=== PATIENT | female | born 2000 | race Caucasian/White ===

== ENCOUNTER 2023-08-31 06:20 | Observation (INO) | payer OTHER ==
[2023-08-31] VITALS (13 sets, daily range): BP systolic 93–134; BP diastolic 59–85; PULSE 74–90; TEMP 97.4–98.3
[~2023-08-31] VITALS: Ht 154.9 cm; Wt 115.0 kg
[2023-08-31] MEDS ORDERED: Ondansetron 4 MG/2 ML VIAL IV ONE (07:00)
[2023-08-31] MEDS ORDERED: LR 1,000 ML IV ONE (07:00)
[2023-08-31 07:19] LABS: COLLECTION METHOD CLEAN CATCH
[2023-08-31 07:26] LABS: BASO # 0.1 K/mm3 (0.0-0.2); BASO % 0.2 % (0.0-2.0); EOS % 0.1 % (0.0-4.0); GRAN # 17.2 K/mm3 (1.4-6.5); HEMATOCRIT 38.9 % (37.0-47.0); LYMPH # 2.7 K/mm3 (1.2-3.4); LYMPH % 12.5 % (20.0-51.0); MEAN CELL VOLUME 85 fl (80.0-100.0); MEAN CORPUSCULAR HEMOGLOBIN 29 pg (27-31); MEAN CORPUSCULAR HGB CONC 33 g/dl (33.0-37.0); MEAN PLATELET VOLUME 9.3 fl (7.4-10.4); MONO # 1.4 K/mm3 (0.1-0.6); MONO % 6.5 % (1.7-9.3); PLATELET COUNT 400 K/mm3 (130-400); RED BLOOD COUNT 4.56 M/mm3 (4.10-5.30); REDCELL DISTRIBUTION WIDTH-CV 12.9 % (11.5-14.5)
[2023-08-31 07:27] LABS: URINE APPEARANCE Hazy (CLEAR/HAZY); URINE BLOOD 3+ (NEGATIVE); URINE COLOR Yellow (YELLOW); URINE GLUCOSE Negative (NEGATIVE); URINE KETONE Negative (NEGATIVE); URINE NITRATE Negative (NEGATIVE); URINE PROTEIN(semi-quant) 1+ (NEGATIVE)
[2023-08-31 07:35] LABS: MUCOUS Present (NOT PRESENT); URINE BACTERIA Rare /hpf (NONE SEEN); URINE RBC 20-50 /hpf (0-2)
[2023-08-31] MEDS ORDERED: Iohexol 300 - 100 ML VIAL IV ONE (07:35)
[2023-08-31] MEDS ORDERED: NS 100 ML IV SCH (07:36)
[2023-08-31 07:45] LABS: ALBUMIN 3.8 gm/dL (3.5-5.0); BILIRUBIN,TOTAL 0.6 mg/dL (0.2-1.2); C-REACTIVE PROTEIN 22.88 mg/dL (0.00-0.50); CALCIUM 9.2 mg/dL (8.4-10.2); CREATININE, serum 0.79 mg/dL (0.57-1.11); POTASSIUM 3.1 mmol/L (3.5-4.5)
[2023-08-31] MEDS ORDERED: LR 1,000 ML IV SCH (09:00)
[2023-08-31] MEDS ORDERED: Morphine 4 MG/ML VIAL IV PRN (09:00)
[2023-08-31] MEDS ORDERED: Ondansetron 4 MG/2 ML VIAL IV PRN ×3 (09:00→13:30)
[2023-08-31] MEDS ORDERED: Ondansetron 4 MG/2 ML VIAL ONE (11:42)
[2023-08-31] MEDS ORDERED: Lidocaine PF 2% (20 MG/ML) 5 ML VIAL ONE (11:42)
[2023-08-31] MEDS ORDERED: Rocuronium 50 MG/5 ML Multi-Dose VIAL ONE (11:43)
[2023-08-31] MEDS ORDERED: fentaNYL 50 MCG/ML 5 ML VIAL ONE (11:43)
[2023-08-31] MEDS ORDERED: Topical Skin Adhesive 1 EACH (1 ML) TOP ONE (12:50)
[2023-08-31] MEDS ORDERED: HYDROmorphone 2 MG/1 ML VIAL IV PRN (13:00)
[2023-08-31] MEDS ORDERED: fentaNYL 50 MCG/ML 2 ML VIAL IV PRN (13:00)
[2023-08-31] MEDS ORDERED: oxyCODONE 5 MG TAB PO PRN (13:30)
[2023-08-31] MEDS ORDERED: Naloxone 0.4 MG/ML VIAL IV PRN (13:30)
--- NOTE | 2023-08-31 14:15 | NUR ---
pt admitted to room from pacu, at bedside. pt a&ox3 resting in bed. pt denies pain and nausea. x3 lap sites are cdi. vss. scds to ble. INT to left ac. pt denies needs at this time. oriented pt to room. call light in reach.
[2023-08-31] MEDS ORDERED: Acetaminophen 500 MG TAB PO SCH (14:21)
--- NOTE | 2023-08-31 20:00 | NUR ---
UPON SHIFT ASSESSMENT, WILMER WAS UP IN BED PUMPING BREAST MILK. SHE IS AXO X 4 AND PLEASANT. LAP APPY SITES ARE GLUE AND TO AIR, EDGES WELL APPROXIMATED WITH NO DRAINAGE OR NO REDNESS NOTED. WILMER SAYS SHE IS ABLE TO URINATE AND PASS GAS AND REPORTS NO NAUSES. ABDOMEN IS SOFT AND PALPABLE. VS ARE WNL.
[2023-09-01] VITALS (7 sets, daily range): BP systolic 106–134; BP diastolic 62–66; PULSE 71–93; TEMP 98.2–98.4
--- NOTE | 2023-09-01 07:00 | NUR ---
THROUGH OUT THE NIGHT, WILMER HAS REMAINED STABLE AND A FEBRILE. PAIN WAS MANAGED MOSTLY WITH TYLENOL WITH ONE DOSE RAMONITA GIVEN @04:30. SURGICAL SITE IS CDI. SHE IS AMBULATING AROUND ROOM AND REMAINS PLESANT. CALL LIGHT WITHIN REACH.
--- NOTE | 2023-09-01 08:20 | NUR ---
Assessment completed. Pt reports abominal pain, rating pain 5/10. Scheduled Tylenol administered.
[2023-09-01] MEDS ORDERED: ROXICODONE 55 MG/TAB PO (13:31)
[2023-09-01] MEDS ORDERED: TYLENOL 500MG500 MG PO (13:31)
--- NOTE | 2023-09-01 14:35 | NUR ---
Discharge instructions reviewed with patient- verbalizes understanding. INT to LAC d/'d with cath tip intact. Pt escorted to private vehicle via w/c and discharged home with spouse.
== END 2023-09-01 14:35 | disposition home or self-care (01) ==
LOC: COL.ER 06:20 → MEDICAL 07:53 → INPTSU 07:53 → COL.ER 07:53 → INPTSU 07:53 → COL.ER 12:42 → SDCO 12:42 → MEDICAL 14:15 → SDCO 14:15 → MEDICAL 09-01 14:35
PROVIDERS: Family Medicine; ADMIT Surgery
DX: K35.891 Other acute appendicitis without perforation, with gangrene (principal); K21.9 Gastro-esophageal reflux disease without esophagitis
CPT/HCPCS: OP; G0378; J2405; J2543; J2704; J3010; J7120; Q9967

== ENCOUNTER 2024-06-11 09:38 | Outpatient (CLI) | payer MEDICAID ==
[~2024-06-11] VITALS: Ht 165.1 cm; Wt 124.5 kg
[~2024-06-11 09:38] MED LIST: ROXICODONE 55 MG/TAB PO; TYLENOL 500MG500 MG PO
[2024-06-11] MEDS ORDERED: ZOLOFT 50MG50 MG PO (10:12)
[2024-06-11] MEDS ORDERED: ATARAX50 MG PO (10:12)
[2024-06-11] MEDS ORDERED: ASPIRIN 81M81 MG/TA2 PO (10:13)
[2024-06-11] MEDS ORDERED: PRENATAL TABLET PO (10:13)
[2024-06-11 10:25] LABS: HEMOGLOBIN 11.5 g/dl (12.5-16.0); MEAN CELL VOLUME 86 fl (80.0-100.0); MEAN CORPUSCULAR HEMOGLOBIN 29 pg (27-31); MEAN CORPUSCULAR HGB CONC 34 g/dl (33.0-37.0); MEAN PLATELET VOLUME 9.4 fl (7.4-10.4); PLATELET COUNT 349 K/mm3 (130-400); RED BLOOD COUNT 3.93 M/mm3 (4.10-5.30); REDCELL DISTRIBUTION WIDTH-CV 12.6 % (11.5-14.5)
[2024-06-11 10:30] VITALS: BP 100/61; PULSE 98; TEMP 97.9
--- NOTE | 2024-06-11 10:30 | NUR ---
Pt presents ambulatory to unit from ER at 0950, changes into gown, EFM explained and placed, VS taken. Pt reports feeling dizzy and lightheaded with racing heart. Had a similar episode last night. Pt reports this is second , she had HTN and not feeling well with first and is concerned it is happening again. Pt states she was on labetalol with first but has not taken it since she gave , but is following with Cardiology. Pt denies other complications, but does report that she was seeing OB at [facility] but lost insurance and has not been able to get into [facility] so she hasn't been seen since 24 weeks. Pt denies leaking of fluid and vaginal bleeding, reports movement, denies contractions, headaches, and swelling other than mild in her hands and feet. Dr. Mckeon on unit and notified, given report, labs ordered.
[2024-06-11 10:32] LABS: ALBUMIN 2.9 g/dL (3.5-5.0); BILIRUBIN,TOTAL 0.2 mg/dL (0.2-1.2); CREATININE, serum 0.58 mg/dL (0.57-1.11); HEMATOCRIT 33.6 % (37.0-47.0); POTASSIUM 3.7 mEq/L (3.5-4.5); TOTAL PROTEIN 6.7 g/dl (6.2-8.1)
[2024-06-11 10:39] LABS: BAND 2 % (0-10); EOSINOPHIL 4 % (0-4); LYMPHOCYTE 22 % (20.0-51.0); NEUTROPHILS 66 % (42.0-75.2)
[2024-06-11 10:39] LABS: COLLECTION METHOD CLEAN CATCH
[2024-06-11 10:40] LABS: PLATELET ESTIMATE NORMAL (NORMAL)
[2024-06-11 10:48] LABS: URINE APPEARANCE CLEAR (CLEAR/HAZY); URINE BLOOD NEGATIVE (NEGATIVE); URINE COLOR YELLOW (YELLOW); URINE GLUCOSE NEGATIVE (NEGATIVE); URINE KETONE NEGATIVE (NEGATIVE); URINE NITRATE NEGATIVE (NEGATIVE); URINE PROTEIN(semi-quant) NEGATIVE (NEGATIVE); URINE UROBILINOGEN 0.2 E.U/dL (0.2-1.0)
[2024-06-11 10:52] LABS: TSH w REFLEX 1.054 uIU/mL (0.350-4.940)
[2024-06-11 11:00] VITALS: BP 112/64; PULSE 90
[2024-06-11] MEDS ORDERED: Nitrofurantoin (Mono/Macro) 100 MG CAP PO ONE (11:15)
[2024-06-11] MEDS ORDERED: LR 1,000 ML IV PRN (11:15)
[2024-06-11 11:27] VITALS: BP 124/62; PULSE 85
--- NOTE | 2024-06-11 11:58 | NUR ---
Dr. Mckeon reviews labs, orders for Macrobid received and called to [facility]. VS WNL, FHR Cat 1, no contractions noted on monitor. Pt informed of plan of care, verbalizes understanding. Pt education provided on discomforts of , instructed to return to hospital if leaking fluid, vaginal bleeding, decrease in baby's movements, or regular strong contractions every 3-5 minutes. Pt verbalizes understanding, denies questions. First dose of macrobid given. Pt leaves ambulatory at 1145.
== END 2024-06-11 11:45 | disposition home or self-care (01) ==
LOC: LDRO 09:38
PROVIDERS: Obstetrics & Gynecology
DX: O26.899 Other specified pregnancy related conditions, unspecified trimester (principal); R42 Dizziness and giddiness; R00.0 Tachycardia, unspecified; Z3A.00 Weeks of gestation of pregnancy not specified